=== PATIENT | female | born 1995 | race Caucasian/White ===

== ENCOUNTER → 2019-03-30 18:00 | Outpatient (CLI) | payer BC, SELFPAY | PROVIDERS: Visit Provider Physician Assistant | DX: J02.9 Acute pharyngitis, unspecified (principal) | CPT/HCPCS: 87070 ==

== ENCOUNTER 2019-10-06 02:31 | Emergency (ER) | payer BC, SELFPAY ==
--- NOTE | 2019-10-06 02:36 | ED.BACK ---
HPI - Back Pain/Injury General Chief Complaint: Back Pain/Injury Stated Complaint: back pain for 2 days after exercising Time Seen by Provider: 10/06/19 02:35 Source: patient Mode of arrival: Ambulatory Limitations: no limitations History of Present Illness HPI Narrative: 23-year-old female nonsmoker with noncontributory medical history presents by herself with a chief complaint of severe spasming, worsening left lower back pain since doing and aerobic type exercise 2 days ago. She states the pain tends to be much worse with movement or sitting upright. It spasms intensely and on occasion radiates up to the bottom of her shoulder blade. She denies any focal neurologic findings such as numbness, tingling or weakness. She denies trouble controlling bowel or bladder. She denies any footdrop. She denies any history of the same. She tried multiple [id number] therapies prior to coming tonight. MD Complaint: back pain and back injury Onset (ago): day(s) Duration: intermittent Similar Symptoms Previously: No Location: left lower back Severity: severe Quality: burning, sharp and spasming Relieving factors: immobilization Exacerbating factors: movement, sitting upright and walking Context: while lifting Related Data Previous Rx's Medication Instructions Recorded cyclobenzaprine 10 mg PO TID PRN #14 tab 10/06/19 hydrocodone-acetaminophen 1 tab PO Q4-6H PRN #10 tab 10/06/19 ketorolac 10 mg PO Q6H PRN #14 tab 10/06/19 lidocaine [Lidoderm] 1 patch TOP DAILY #15 each 10/06/19 Allergies Allergy/AdvReac Type Severity Reaction Status Date / Time morphine AdvReac Verified 10/06/19 02:41 Review of Systems Constitutional Constitutional: Denies chills, Denies fatigue, Denies fever(s), Denies frequent falls, Denies lethargy and Denies weakness Eyes Eyes: Denies change in vision, Denies eye discharge, Denies irritation and Denies loss of vision ENT Ears, Nose, Mouth, and Throat: Denies change in voice, Denies dizziness, Denies neck pain, Denies sore throat and Denies throat swelling Cardiovascular Cardiovascular: Denies chest pain, Denies irregular heart rhythm, Denies lightheadedness, Denies palpitations, Denies dyspnea, Denies dyspnea on exertion and Denies orthopnea Respiratory Respiratory: Denies cough, Denies dyspnea, Denies dyspnea on exertion and Denies wheezing Gastrointestinal Gastrointestinal: Denies abdominal pain, Denies change in bowel habits, Denies diarrhea, Denies nausea and Denies vomiting Musculoskeletal Musculoskeletal: Reports abnormal gait, Reports back pain, Denies neck pain and Denies numbness Integumentary/Breasts Skin/Breast: Denies pruritus, Denies erythema, Denies rash and Denies wounds Neurologic Neurologic: Reports abnormal gait, Denies behavioral changes, Denies confusion, Denies dizziness, Denies frequent falls, Denies loss of vision, Denies numbness and Denies weakness Psychiatric Psychiatric: Denies anxiety, Denies behavioral changes, Denies confusion, Denies depression, Denies homicidal ideation and Denies suicidal ideation Endocrine Endocrine: Denies fatigue, Denies flushing and Denies palpitations Hematologic/Lymphatic Hematologic/Lymphatic: Denies easy bruising Allergic/Immunologic Allergic/Immunologic: Denies urticaria, Denies throat swelling and Denies wheezing Patient History Social History Smoking Status: Never smoker Smoking Status: Never smoker Exam Narrative Exam Narrative: GENERAL: [23] year old patient appears stated age. Well-nourished, well-developed patient, in mild distress. HEAD: Atraumatic. Normocephalic. EYES: Pupils equal round and reactive. Extraocular motions intact. No scleral icterus. No injection or drainage. ENT: Nose without bleeding, purulent drainage. Throat without erythema, tonsillar hypertrophy or exudate. Airway patent. NECK: Trachea midline. Non tender CARDIOVASCULAR: Regular rate and rhythm without murmurs, gallops, or rubs. RESPIRATORY: Clear to auscultation. Breath sounds equal bilaterally. No wheezes, rales, or rhonchi. GASTROINTESTINAL: Abdomen soft, non-tender, nondistended. EXTREMITIES: No edema or joint tenderness. BACK: Nontender without deformity or crepitance. No flank tenderness. NEURO: AOx3. SKIN: No rash or erythema of visible areas BACK: soldering machine tender but free of any obvious external abnormalities. Patient exam notes decreased range of motion and muscle spasm, but no CVA tenderness, or vertebral point tenderness. There are no symptoms of cauda equina such as saddle anesthesia, and decreased reflexes, decreased sensation or strength. Initial Vital Signs Initial Vital Signs: Vital Signs Temperature 99.0 F 10/06/19 02:39 Pulse Rate 79 10/06/19 02:39 Respiratory Rate 16 10/06/19 02:39 Blood Pressure 113/68 10/06/19 02:39 Pulse Oximetry 100 10/06/19 02:39 Course Orders Ordered: Discontinued Medications Hydrocodone Bitart/Acetaminophen (Vicodin 5/325 Prepack) 1 bottle MISC SEEINSTR ONE Stop: 10/06/19 02:48 Last Admin: 10/06/19 02:53 Dose: 1 bottle Documented by: VIKRAM Cyclobenzaprine HCl (Flexeril 10 Mg Prepack) 1 bottle MISC SEEINSTR ONE Stop: 10/06/19 02:48 Last Admin: 10/06/19 02:53 Dose: 1 bottle Documented by: VIKRAM Ketorolac Tromethamine (Toradol) 60 mg IM NOW ONE Stop: 10/06/19 02:48 Last Admin: 10/06/19 02:53 Dose: 60 mg Documented by: VIKRAM Lidocaine (Lidoderm) 1 each TOP NOW ONE Stop: 10/06/19 02:48 Last Admin: 10/06/19 02:53 Dose: 1 each Documented by: VIKRAM Vital Signs Vital signs: Vital Signs - 8 hr 10/06/19 02:39 Temperature 99.0 F Pulse Rate 79 Respiratory Rate 16 Blood Pressure 113/68 Pulse Oximetry 100 MDM - Back Pain/Injury MDM Narrative Medical decision making narrative: Multiple etiologies of back pain considered including; Epidural abscess, cauda equina, mass occupying lesion, and other considered Discharge Plan Departure Patient Disposition: Home Clinical Impression: Strain of lumbar region Qualifiers: Encounter type: initial encounter Qualified Code(s): S39.012A - Strain of muscle, fascia and tendon of lower back, initial encounter Instructions: DI for Back Spasm Activity Restrictions/Additional Instructions: *You have been diagnosed with [lumbar strain with spasm] *What to do: *Take medications as directed: Prescription sent to [facility] in [place] *Follow up with your primary care provider in 2-3 days, call for an appointment. Let them know you were seen in the Emergency Department and that we ask that you be seen in follow up *Return to ER if you should have any new, worsening or concerning symptoms Prescriptions: New cyclobenzaprine 10 mg tablet 10 mg PO TID PRN (Reason: muscle spasm) Qty: 14 RF: 0 hydrocodone-acetaminophen 5-325 mg tablet 1 tab PO Q4-6H PRN (Reason: pain) Qty: 10 RF: 0 ketorolac 10 mg tablet 10 mg PO Q6H PRN (Reason: pain) Qty: 14 RF: 0 lidocaine [Lidoderm] 5 % adhesive patch,medicated 1 patch TOP DAILY Qty: 15 RF: 0
[2019-10-06 02:39] VITALS: BP 113/68; PULSE 79; RESP 16; TEMP 37.2; O2SAT 100; BMI 22.6
[2019-10-06] MEDS: KETOROLAC 60 MG/2 ML VIAL IM (02:53)
[2019-10-06] MEDS: LIDOCAINE PATCH 1 EACH ADH..PATCH TOP (02:53)
[2019-10-06] MEDS: HYDROCODONE/ACET 5/325 PREPACK 1 BOTTLE MISC (02:53)
[2019-10-06] MEDS: CYCLOBENZAPRINE 10 MG PREPACK 1 BOTTLE MISC (02:53)
== END 2019-10-06 03:22 | disposition home or self-care (01) ==
PROVIDERS: Emergency Provider Emergency Medicine
DX: S39.012A Strain of muscle, fascia and tendon of lower back, initial encounter (principal)
CPT/HCPCS: 96372; 99282; 99283; J1885